=== PATIENT | male | born 1985 | race African-American/Black ===

== ENCOUNTER 2021-08-10 02:52 | Emergency (ER) | payer MEDICAID, SELFPAY ==
[2021-08-10 03:02] VITALS: BMI 24.9
--- NOTE | 2021-08-10 03:08 | PC.NURSE ---
PT refusing vitals at this time. PT continues to state that he doesn't need any help and he just wants to leave.
--- NOTE | 2021-08-10 03:11 | ED.PSYCH ---
HPI - Psych General Chief Complaint: Psychiatric Symptoms Stated Complaint: crisis Time Seen by Provider: 08/10/21 03:10 Source: patient Mode of arrival: EMS Limitations: no limitations History of Present Illness HPI Narrative: Patient found in the bathtub and his family was concerned about overdose. Patient does not want to hurt himself. Onset (ago): minute(s) Duration: constant Associated symptoms: denies other symptoms Related Data Allergies Allergy/AdvReac Type Severity Reaction Status Date / Time No Known Allergies Allergy Unverified 01/30/20 16:20 Review of Systems Constitutional: Constitutional: Reports no additional constitutional complaints Eyes: Eyes: Reports no additional eye complaints ENT: Denies dizziness Cardiovascular: Cardiovascular: Reports no additional cardiovascular complaints Respiratory: Respiratory: Reports as per HPI Gastrointestinal: Gastrointestinal: Reports no additional gastrointestinal complaints Musculoskeletal: Musculoskeletal: Reports no additional musculoskeletal complaints Integumentary/Breasts: Skin/Breast: Denies rash Neurologic: Reports system reviewed and no additional complaints, except as documented, Denies dizziness and Denies Sensory deficit (Neuro) Psychiatric: Psychiatric: Denies anxiety [facility] Social History Social History Advance Directives: No Advance Directives Information Provided: No Physical Exam Vital Signs: Vital Signs: BMI result Body Mass Index 24.9 Const: General: healthy appearing Nutritional Appearance: average body habitus Orientation/consciousness: oriented to person and patient oriented x3 Limitations: no limitations HEENT: Head: Yes normal to inspection Ears: external ears normal General nose exam: Normal external nose present Mouth: Normal oral and palatal mucosa present and oropharynx normal Throat: Yes posterior oropharynx normal Eyes: General: appearance normal, both eyes and all related structures Neck: Other: supple Neck: Yes normal visual inspection Chest: Chest palpation & inspection: normal inspection of the chest Resp: Auscultation: clear to auscultation bilaterally Cardio: Jugular venous distension: no JVD Rate: regular rate Rhythm: regular rhythm Heart sounds: S1 normal heart sound present and S2 normal heart sound present GI: Inspection: Yes normal to inspection Palpation (GI): Soft to palpation, nontender and No hepatosplenomegaly present Auscultation: normal bowel sounds : General: Yes no CVA tenderness Back/Spine/Pelvis: Back: no CVA tenderness Skin: General skin exam: no rashes or lesions noted Neuro: General: oriented to person and patient oriented x3 Cranial nerves: Yes CN's II-XII intact bilaterally Motor exam (neuro): 5/5 motor strength present throughout Sensory Exam: No Sensory deficit (Neuro) Extrem: General: Yes normal to inspection Psych: Appearance: grossly normal Course Reevaluation(s) Reevaluation #1: patient refusing conselors, refusing sude evaluation, states he is not suicidal or homicidal ideation Time: 03:16 Discharge Plan Discharge Clinical Impression: Depression, Polysubstance (including opioids) dependence with physiol dependence Patient Disposition: Home, Self-Care Instructions: Depression (ED) Referrals: PhysicianCorie J [Primary Care Provider] - 5 days Interventions: ED Discharge Assessment Last Done: 08/10/21 03:28 Discharge Date/Time: 08/10/21 03:32
--- NOTE | 2021-08-10 06:26 | MHC.CARE ---
Received consult request. Pt discharged prior to CARE Team arriving at 0600.
== END 2021-08-10 03:32 | disposition home or self-care (01) ==
PROVIDERS: Emergency Provider Emergency Medicine
DX: F33.1 Major depressive disorder, recurrent, moderate (principal); F11.20 Opioid dependence, uncomplicated; Z71.51 Drug abuse counseling and surveillance of drug abuser
CPT/HCPCS: 99283; 99284

== ENCOUNTER 2021-08-20 15:29 | Emergency (ER) | payer MEDICAID, SELFPAY ==
--- NOTE | 2021-08-20 15:46 | ED_ITS ---
HPI - Psych General Chief Complaint: Psychiatric Symptoms Stated Complaint: sec 12 from [facility], si no plan Time Seen by Provider: 08/20/21 15:43 Source: EMS Mode of arrival: EMS Limitations: no limitations History of Present Illness HPI Narrative: 36-year-old male with a history of PTSD, bipolar disorder, depression, ADHD coming from the community on a section 12 with suicidal thoughts. Per section the patient has reported suicidal thoughts no current plan, seems to be responding to internal stimuli, several OD's since May with ?intentional, not sleeping or eating. Has been off all his medication for >2 months. Related Data Home Medications Medication Instructions Recorded Confirmed aripiprazole 15 mg tablet 1 tab PO DAILY 08/20/21 08/20/21 Allergies Allergy/AdvReac Type Severity Reaction Status Date / Time No Known Allergies Allergy Unverified 01/30/20 16:20 Review of Systems Review of Systems: Yes all other systems are reviewed and are negative Constitutional: Constitutional: Reports no additional constitutional complaints, Denies body ache(s), Denies chills, Denies fever(s), Denies headache(s) and Denies weakness Eyes: Eyes: Reports no additional eye complaints and Denies change in vision ENT: Reports system reviewed and no additional complaints, except as documented, Denies dizziness, Denies headache(s), Denies nasal congestion, Denies nasal discharge and Denies neck pain Cardiovascular: Cardiovascular: Reports no additional cardiovascular complaints, Denies chest pain, Denies leg edema and Denies dyspnea Respiratory: Respiratory: Reports no additional respiratory complaints, Denies cough and Denies dyspnea Gastrointestinal: Gastrointestinal: Reports no additional gastrointestinal complaints, Denies abdominal pain, Denies diarrhea, Denies nausea and Denies vomiting Genitourinary: Genitourinary: Denies urinary incontinence Musculoskeletal: Musculoskeletal: Reports no additional musculoskeletal complaints, Denies back pain, Denies arthralgias, Denies joint swelling, Denies neck pain, Denies numbness and Denies tingling Integumentary/Breasts: Skin/Breast: Reports system reviewed and no additional complaints, except as docu and Denies rash Neurologic: Reports system reviewed and no additional complaints, except as documented, Denies Abnormal speech present, Denies dizziness, Denies headache(s), Denies numbness, Denies tingling and Denies weakness Psychiatric: Psychiatric: Reports depression and Reports suicidal ideation PMFSH Past Medical History Attestation statement: The following information was validated with the patient. Source: old records reviewed and nursing notes reviewed Social History Social History Advance Directives: No Advance Directives Information Provided: No Physical Exam Vital Signs: Vital Signs: Last Vital Signs Temp 98.1 F 08/20/21 15:51 Pulse 81 08/20/21 15:51 Resp 14 08/20/21 15:51 BP 142/82 H 08/20/21 15:51 Pulse Ox 98 08/20/21 15:51 BMI result Body Mass Index 25.9 Const: General: cooperative, healthy appearing, comfortable and no acute di stress Orientation/consciousness: patient oriented x3 Limitations: no limitations HEENT: Head: Yes normal to inspection Ears: hearing grossly normal bilaterally General nose exam: Normal external nose present Face and sinus : Yes normal facial exam Mouth: Normal oral and palatal mucosa present Throat: Yes posterior oropharynx normal Eyes: General: appearance normal, both eyes and all related structures Pupils: Equal, round and reactive pupils present Neck: Neck: Yes normal visual inspection Chest: Chest palpation & inspection: normal inspection of the chest Resp: Effort & Inspection: normal respiratory effort Auscultation: clear to auscultation bilaterally Cardio: Rate: regular rate Rhythm: regular rhythm Peripheral pulses: Peripheral pulses 2+ throughout GI: Inspection: Yes normal to inspection Palpation (GI): Soft to palpation and nontender Auscultation: normal bowel sounds Back/Spine/Pelvis: Thoracic/Lumbar Spine: thoracic and lumbar spine normal to inspection Skin: General skin exam: no rashes or lesions noted Neuro: General: patient oriented x3, no focal motor deficits and normal sensation to monofilament Cranial nerves: Yes CN's II-XII intact bilaterally and Yes Equal, round and reactive pupils present Cognition (Neuro): normal co gnition Speech: No Abnormal speech present Gait exam (Neuro): Normal gait present Motor exam (neuro): 5/5 motor strength present throughout Extrem: General: Yes normal to inspection Course Course Course Narrative: 36 yo male here on Section 12 from the community today with reports of suicidal thoughts. No concern for acute ingestion or trauma. Patient is bed sea from the community. 2000-labs were ordered, drug screen ordered, covid screen. Patient refusing labs at this point. MDM - Psych Medical Records Attestation: I reviewed the patient's medical records. Lab Data Attestation: I reviewed the patient's lab results. Result diagrams: 08/20/21 20:53 08/20/21 20:53 Labs: Lab Results 08/20/21 Range/Units 16:27 COVID-19 (NA) Negative (Negative) COVID-19 Clin Com See Note Discharge Plan Discharge Clinical Impression: Suicidal ideation Patient Disposition: Still a Patient Prescriptions: No Action aripiprazole 15 mg tablet 1 tab PO DAILY 0RF
[2021-08-20 15:51] VITALS: BP 142/82; PULSE 81; RESP 14; TEMP 36.7; O2SAT 98; BMI 25.9
--- NOTE | 2021-08-20 15:59 | PC.NURSE ---
Security called, pt changed into hospital attire. Pt's belongings placed into locker 12. 1:1 monitoring initited.
--- NOTE | 2021-08-20 15:59 | PC.NURSE ---
PATIENT REFUSED ALL LABS ,NAIN PEDERSEN AND MD CAMPBELL AWARE .
--- NOTE | 2021-08-20 16:40 | PC.NURSE ---
Patient talked with the provider and agreed to give urine and do a COVID swab. Patient is still refusing lab work.
[2021-08-20 16:47] LABS: COVID-19 Test Negative (Negative); IDNOW Serial# 16C4AD1C
--- NOTE | 2021-08-20 17:35 | PC.NURSE ---
patient attempting to etienne staff when given response to med inquiry. patient during interview had said he was on no current medications.
[2021-08-20 21:08] LABS: MANUAL DIFF FLAG NO
[2021-08-20 21:09] LABS: Basophils Absolute Auto 0.1 X10*3/uL (0.0-0.2); Basophils Percent Auto 0.8 % (0-2); Eosinophils Absolute Auto 0.2 X10*3/uL (0.0-0.4); Eosinophils Percent Auto 3.2 % (0-4); Hemoglobin 15.2 g/dl (14.0-18.0); Imm Gran Abs Auto 0.01 X10*3/uL (0.00-0.03); Imm Gran Pct Auto 0.2 % (0.0-0.4); Lymphocytes Absolute Auto 3.5 X10*3/uL (1.2-4.9); Lymphocytes Percent Auto 54.7 % (20-40); Mean Corpuscular HGB Conc 34.5 g/dl (31.0-36.0); Mean Corpuscular Hemoglobin 30.3 pg (27.0-33.0); Mean Corpuscular Volume 87.6 fL (80.0-98.0); Mean Platelet Volume 9.3 fL (9.4-12.4); Monocytes Absolute Auto 0.5 X10*3/uL (0.1-1.2); Monocytes Percent Auto 7.6 % (2-11); Neutrophils Absolute Auto 2.1 x10*3/uL (2.0-8.3); Neutrophils Percent Auto 33.5 % (45-73); Platelet Count 239 X10*3/uL (160-400); Red Blood Count 5.02 X10*6/uL (4.60-5.80); Red Cell Distribution Width 13.1 % (11.0-16.0); White Blood Count 6.3 X10*3/uL (4.8-10.8)
[2021-08-20 21:20] LABS: Amphetamine Screen Urine Not Detected (Not Detect); Barbiturates, Urine Not Detected (Not Detect); Benzodiazepines Screen Urine Not Detected (Not Detect); Cannabinoid Screen Urine POSITIVE (Not Detect); Cocaine Screen Urine POSITIVE (Not Detect); Fentanyl, urine POSITIVE (Not Detect); Opiate Screen Urine POSITIVE (Not Detect); Phencyclidine Screen Urine Not Detected (Not Detect)
[2021-08-20 21:25] LABS: Ethanol < 10 mg/dL
[2021-08-20 21:38] LABS: Alanine Aminotransferase 14 U/L (0-40); Albumin Level 4.3 g/dL (3.5-5.0); Alkaline Phosphatase 59 U/L (39-117); Anion Gap 12 (12-20); Aspartate Amino Transferase 18 U/L (5-37); Bilirubin Direct 0.4 mg/dL (0.0-0.5); Bilirubin Total 1.3 mg/dL (0.0-1.0); Blood Urea Nitrogen 15 mg/dL (9-16); Calcium 9.1 mg/dL (8.4-10.2); Carbon Dioxide 27 mmol/L (22-29); Chloride 102 mmol/L (96-108); Creatinine Clr Calc Pharmacy 78.2; Estimated Glomerular Filt Rate > 60; Glucose Random 126 mg/dL (60-115); Potassium 3.3 mmol/L (3.3-5.1); Sodium 138 mmol/L (135-145); Total Protein 7.1 g/dL (6.5-8.0)
[2021-08-20 22:56] LABS: Acetaminophen LAB < 1 mcg/mL (<30); Salicylate < 5.0 mg/dL (15-30)
[2021-08-21 06:27] VITALS: BP 103/73; PULSE 79; RESP 17; TEMP 36.5; O2SAT 96
--- NOTE | 2021-08-21 06:29 | PC.NURSE ---
Patient slept through the night, no distress observed/reported, behavior non concerning, med rec completed/pending provider's approval, disposition per [facility] is section 12 inpatient bed search, [facility], transfer order paper filled up, needs to be submitted to ED stenographer secretary to arrange ride after RN to RN is completed, receiving hospital wants RN to RN between [phone], with ETA 1000 am, VSS, will continue to monitor.
--- NOTE | 2021-08-21 07:22 | PC.NURSE ---
patient appears to remain asleep at present respirations are even and unlabored patient appears in no distress
--- NOTE | 2021-08-21 12:12 | PC.NURSE ---
client upon entering room appeared to lose balance perhaps? this did not look like an actual fall, but appeared to be a dramatic gesture in the opinion of this curriculum writer, i asked the opinion of the tech that was within four feet of my position and she agreed. vs obtained immediately and were within normal limits.
[2021-08-21 12:16] VITALS: BP 138/64; PULSE 79; RESP 18; TEMP 36.3; O2SAT 100
== END 2021-08-21 13:01 ==
PROVIDERS: Nurse Practitioner Family; Emergency Provider Emergency Medicine
DX: F33.1 Major depressive disorder, recurrent, moderate (principal); R45.851 Suicidal ideations; Z79.899 Other long term (current) drug therapy; Z20.822 Contact with and (suspected) exposure to COVID-19
CPT/HCPCS: 36415; 80048; 80076; 80143; 80179; 80307; 82077; 85025; 87635; 99285

== ENCOUNTER 2021-09-26 07:43 | Emergency (ER) | payer MEDICAID, SELFPAY ==
[2021-09-26 08:23] VITALS: BP 129/87; PULSE 88; RESP 14; TEMP 36.4; O2SAT 96
[2021-09-26 08:27] VITALS: BP 120/78; BP 143/84; PULSE 102; PULSE 94; RESP 14; O2SAT 92; O2SAT 97; BMI 24.2
--- NOTE | 2021-09-26 08:30 | ED.GENADULT ---
HPI - General Adult General Chief complaint: Overdose Stated complaint: drug use at [facility] Time Seen by Provider: 09/26/21 08:09 Source: patient Mode of arrival: ambulatory Limitations: no limitations History of Present Illness HPI narrative: 36 year male presents to the ED for drug use. Patient was doing drugs in [facility] and brought to the ED for evaluation. Patient was not unconscious and did not overdose. Patient was found using drugs. Patient's history of psych history but presently denies any suicidal homicidal ideation. Patient states when he dennis up he will have to go to work. Patient does not want detox Related Data Home Medications Medication Instructions Recorded Confirmed aripiprazole 15 mg tablet 1 tab PO DAILY 08/20/21 08/20/21 Allergies Allergy/AdvReac Type Severity Reaction Status Date / Time No Known Allergies Allergy Unverified 01/30/20 16:20 Review of Systems Review of Systems: Substance use Yes all other systems are reviewed and are negative PMFSH Social History Social History Advance Directives: No Advance Directives Information Provided: No Physical Exam ED Vital Signs: Vital Signs - 24 hr 09/26/21 08:23 09/26/21 08:27 09/26/21 11:26 Temperature 97.6 F Pulse Rate 88 102 H 84 Respiratory Rate 14 14 14 Blood Pressure 129/87 143/84 H 138/86 Pulse Oximetry 96 92 98 BMI result Body Mass Index 24.2 Const General: cooperative, healthy appearing, comfortable, no acute distress, well developed, alert, awake and Physically active Orientation/consciousness: patient oriented x3 HENMT Head: Yes normal to inspection, Yes No palpable skull fracture present, Yes normocephalic, Yes atraumatic and No abrasion Ears: hearing grossly normal bilaterally, external ears normal, TM's normal bilaterally, EAC's normal, mastoids normal and no periauricular adenopathy Eyes General: appearance normal, both eyes and all related structures Neck Neck: Yes normal visual inspection, Yes full ROM, Yes no lymphadenopathy, Yes no meningeal signs, Yes trachea midline, Yes supple, No anterior neck swelling and No tender Chest Chest palpation & inspection: normal inspection of the chest and normal palpation of entire chest wall Resp Effort & Inspection: normal respiratory effort and able to speak in complete sentences Auscultation: clear to auscultation bilaterally Cardio Jugular venous distension: no JVD Heart sounds: S1 normal heart sound present and S2 normal heart sound present GI Inspection: Yes normal to inspection and No abdominal wall ecchymosis Palpation (GI): Soft to palpation, not firm, nontender, no guarding and not rigid General: No CVA tenderness and Yes no CVA tenderness Back/Spine/Pelvis Back: no CVA tenderness, No CVA tenderness and No back tenderness Skin General skin exam: no rashes or lesions noted and elasticity normal Neuro General: patient oriented x3, gait normal, tone normal, no meningeal signs, no focal motor deficits and CN's II-XI intact bilaterally Cranial nerves: Yes CN's II-XII intact bilaterally Extrem General: Yes normal to inspection and Yes full ROM Psych Appearance: grossly normal, well kempt and not disheveled Course Course Course Narrative: After getting history of patient and evaluated patient. Patient would like to go sleep. He will be allowed to sleep and sober will be re-evaluated and reorder for detox Reevaluation(s) Reevaluation #1: During ED evaluation while sleeping patient O2 saturation dropped to 88%. Patient placed on 2 L and O2 saturation 100%.. Nasal Narcan ordered on standby in case needed. Prior U tox reviewed and shows PC have history of opiate use specially fentanyl, heroin and also cocaine. Although patient denied overdose as per patient care team consult place for LILIAM evaluation Time: 10:19 Reevaluation #2: Patient evaluated by care team asset recovery specialist Miguel who states patient informed him he did not want any detox bed and did not want any referrals to any outpatient programs. Patient observed in the ED for close to 3 hours. Patient presents alert oriented x3 ready for discharge. O2 saturation room air 98% on discharge Time: 11:28 Medical Decision Making MDM Narrative Medical decision making narrative: Overdose Discharge Plan Discharge Clinical Impression: Polysubstance (including opioids) dependence with physiol dependence Patient Disposition: Home, Self-Care Instructions: Polysubstance Abuse (ED) Additional Instructions: Please follow-up with your primary care provider. Return to the ED for any suicidal/homicidal ideation, auditory/visual hallucinations, any physical complaints, or any other concerning symptoms. Prescriptions: No Action aripiprazole 15 mg tablet 1 tab PO DAILY 0RF Stand Alone Forms: Work/School Release Interventions: ED Discharge Assessment Last Done: 09/26/21 11:36 Discharge Date/Time: 09/26/21 11:37 Print Language: Moldovan
--- NOTE | 2021-09-26 11:12 | MHC.RECOVSUP ---
Recovery Support note: Patient is a 36 year old [place]an speaking male who presented to [facility] ED due to appearing under the influence while at work. This parts data writer met with patient to discuss substance use and treatment options. Patient reports he has been sleeping at a custodial and walking two hours to work and that he needs to get to work so he can get a pay check and get out of the custodial. Patient states this is holding me up. Patient report she has used drugs in the past however is adamant that he did not use today and that he is just very tired. Patient is not interested in recovery resources at this time. Discussed case with ED provider.
[2021-09-26 11:26] VITALS: BP 138/86; PULSE 84; RESP 14; O2SAT 98
== END 2021-09-26 11:37 | disposition home or self-care (01) ==
PROVIDERS: Emergency Provider Emergency Medicine
DX: F11.20 Opioid dependence, uncomplicated (principal); F14.20 Cocaine dependence, uncomplicated
CPT/HCPCS: 99283; 99284

== ENCOUNTER 2023-04-18 01:43 | Emergency (ER) | payer MEDICAID, SELFPAY ==
--- NOTE | ~2023-04-18 | CT_ITS ---
EXAMINATION: CT HEAD WITHOUT CONTRAST CT CERVICAL SPINE WITHOUT CONTRAST CLINICAL INFORMATION: Trauma. Pain. COMPARISON: None available. TECHNIQUE: Contiguous axial imaging was performed through the head and cervical spine without intravenous administration of contrast. Sagittal and coronal reformatted images also obtained. This CT examination was performed using dose optimization techniques as appropriate, variously including the following: *Automated exposure control *Adjustment of mA and/or kV according to patient size (this includes techniques or standardized protocols for targeted exams where dose is matched to indication/reason for exam; i.e. extremities or head) *Use of iterative reconstruction technique DLP: 1050 mGy-cm FINDINGS: The lateral, third and fourth ventricles are normally outlined. The cortical sulci and basal cisterns are normally outlined as well. There is no acute territorial defect, hemorrhage or midline shift. The extra-axial spaces are unremarkable. Calvarium: Intact. Maxillofacial sinuses and mastoids: There is a right maxillary sinus opacity which appears to be chronic. The remaining visualized maxillofacial sinuses and mastoids are clear. Cervical spine: The alignment is within normal limits. The disc spaces are maintained. The bone mineralization is normal. There is no fracture. The spinal canal and neuroforamen are patent. The soft tissues are unremarkable. The visualized upper lung english are clear. CT/CT head/brain wo IV con IMPRESSION: No acute intracranial abnormality. No cervical spine fracture or malalignment.
--- NOTE | ~2023-04-18 | CT_ITS ---
EXAMINATION: CT HEAD WITHOUT CONTRAST CT CERVICAL SPINE WITHOUT CONTRAST CLINICAL INFORMATION: Trauma. Pain. COMPARISON: None available. TECHNIQUE: Contiguous axial imaging was performed through the head and cervical spine without intravenous administration of contrast. Sagittal and coronal reformatted images also obtained. This CT examination was performed using dose optimization techniques as appropriate, variously including the following: *Automated exposure control *Adjustment of mA and/or kV according to patient size (this includes techniques or standardized protocols for targeted exams where dose is matched to indication/reason for exam; i.e. extremities or head) *Use of iterative reconstruction technique DLP: 1050 mGy-cm FINDINGS: The lateral, third and fourth ventricles are normally outlined. The cortical sulci and basal cisterns are normally outlined as well. There is no acute territorial defect, hemorrhage or midline shift. The extra-axial spaces are unremarkable. Calvarium: Intact. Maxillofacial sinuses and mastoids: There is a right maxillary sinus opacity which appears to be chronic. The remaining visualized maxillofacial sinuses and mastoids are clear. Cervical spine: The alignment is within normal limits. The disc spaces are maintained. The bone mineralization is normal. There is no fracture. The spinal canal and neuroforamen are patent. The soft tissues are unremarkable. The visualized upper lung english are clear. CT/CT cervical spine wo IV con IMPRESSION: No acute intracranial abnormality. No cervical spine fracture or malalignment.
--- NOTE | ~2023-04-18 | XR_ITS ---
EXAMINATION: XR SHOULDER, LEFT CLINICAL INFORMATION: Injury. Pain. COMPARISON: None available. TECHNIQUE: AP external rotation, Grashey, scapular Y, and axillary views of the left shoulder. FINDINGS: The bones and soft tissues are normal. No fracture. Glenohumeral and acromioclavicular alignment is anatomic with normal joint space. No abnormal soft tissue calcifications. XR/XR shoulder LT min 2V IMPRESSION: No significant abnormality identified.
[2023-04-18 01:52] VITALS: BP 152/98; PULSE 93; RESP 20; TEMP 36.7; O2SAT 99; BMI 24.4
[2023-04-18 04:00] VITALS: BP 126/85; PULSE 82; RESP 16; TEMP 36.9; O2SAT 95
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
[2023-04-18] MEDS: Acetaminophen 325 MG TABLET 975 MG PO (05:36)
[2023-04-18] MEDS: Cyclobenzaprine HCl 10 MG TABLET PO (05:36)
[2023-04-18 05:41] VITALS: BP 131/94; PULSE 87; RESP 16; TEMP 36.7; O2SAT 95
== END 2023-04-18 06:35 | disposition home or self-care (01) ==
PROVIDERS: Emergency Provider Emergency Medicine
DX: S09.90XA Unspecified injury of head, initial encounter (principal); S43.402A Unspecified sprain of left shoulder joint, initial encounter; M25.512 Pain in left shoulder; R51.9 Headache, unspecified; M54.2 Cervicalgia; Y04.2XXA Assault by strike against or bumped into by another person, initial encounter; Y93.9 Activity, unspecified; Y92.9 Unspecified place or not applicable; Y99.9 Unspecified external cause status; Z79.899 Other long term (current) drug therapy
CPT/HCPCS: 70450; 72125; 73030; 99284

== ENCOUNTER 2023-05-11 23:44 | Emergency (ER) | payer MEDICAID, SELFPAY ==
[2023-05-11 23:48] VITALS: BP 124/80; PULSE 91; RESP 18; TEMP 36.8; O2SAT 98; BMI 26.2
--- NOTE | 2023-05-11 23:56 | ED.GENADULT ---
HPI - General Adult General Chief complaint: Skin/Abscess/Foreign Body Stated complaint: rash on penis ? Time Seen by Provider: 05/11/23 23:56 Source: patient Mode of arrival: ambulatory Limitations: no limitations History of Present Illness HPI narrative: Patient is a 38 year old assigned male at with no reported medical history presenting to the emergency department today with pain lesions on his penis. Patient states that last week, he had bronchitis, then went to a hotel and swam in a public pool, and now has penile lesions that are painful to the touch. Patient denies any penile discharge, dizziness, lightheadedness, abdominal pain, nausea, vomiting, fever, chills, blurry vision, double vision, loss of vision, chest pain, difficulty breathing, shortness of breath, back pain, night sweats, pain with urination, increased urinary frequency, increased urinary urgency, blood in his urine or stool, syncope or a near syncopal episode, recent trauma or falls, bowel incontinence, bladder incontinence, bowel retention, bladder retention, or any other complaints at this time. Onset (ago): day(s) Severity: mild Severity scale (1-10): 3 Quality: burning Relieving factors: none Exacerbating factors: none Associated symptoms: rash Treatments prior to arrival: none Related Data Home Medications Medication Instructions Recorded Confirmed aripiprazole 15 mg tablet 1 tab PO DAILY 08/20/21 08/20/21 Previous Rx's Medication Instructions Recorded cyclobenzaprine 10 mg tablet 10 mg PO TID PRN muscle spasm #20 04/18/23 tabs lidocaine 4 % topical patch 1 patch topical DAILY PRN pain #10 04/18/23 ea doxycycline hyclate 100 mg tablet 100 mg PO BID 7 days #14 tabs 05/12/23 valacyclovir 1 gram tablet 1,000 mg PO BID 7 days #14 tabs 05/12/23 Allergies Allergy/AdvReac Type Severity Reaction Status Date / Time acetaminophen Allergy Nausea Verified 05/11/23 23:53 Review of Systems Constitutional: Constitutional: Reports no additional constitutional complaints, Denies chills, Denies fever(s) and Denies night sweats Eyes: Eyes: Reports no additional eye complaints, Denies blurry vision, Denies change in vision, Denies diplopia, Denies eye discharge, Denies loss of vision and Denies eye pain ENT: Denies dizziness Cardiovascular: Cardiovascular: Reports no additional cardiovascular complaints, Denies chest pain, Denies lightheadedness, Denies Loss of Consciousness and Denies dyspnea Respiratory: Respiratory: Reports no additional respiratory complaints and Denies dyspnea Gastrointestinal: Gastrointestinal: Reports no additional gastrointestinal complaints, Denies abdominal pain, Denies melena, Denies hematochezia, Denies change in bowel habits and Denies change in stool character Genitourinary: Genitourinary: Reports no additional male genitourinary complaints, Denies hematuria, Denies oliguria, Denies difficulty urinating, Denies dysuria, Denies urinary frequency, Denies urinary hesitancy, Denies urinary incontinence and Denies urinary urgency Comments: penile lesions Musculoskeletal: Musculoskeletal: Reports no additional musculoskeletal complaints, Denies numbness and Denies tingling Neurologic: Denies dizziness, Denies loss of vision, Denies numbness and Denies tingling Psychiatric: Psychiatric: Reports no additional psychiatric complaints Endocrine: Endocrine: Reports no additional endocrine complaints Hematologic/Lymphatic: Hematologic/Lymphatic: Reports no additional hematologic/lymphatic complaints Allergic/Immunologic: Allergic/Immunologic: Reports no additional allergic/immunologic complaints PMFSH Past Medical History Attestation statement: The following information was validated with the patient. Source: old records reviewed and nursing notes reviewed Medical History Polysubstance (including opioids) dependence with physiol dependence Social History Social History Alcohol intake: current Smoked in Last 30 Days: Yes Use of substances other than those prescribed or required for medical reasons: Yes Substance Use Type: Marijuana Advance Directives: No Advance Directives Information Provided: Yes Physical Exam ED Vital Signs: Vital Signs - 24 hr 05/11/23 23:48 05/12/23 00:45 Temperature 98.2 F 98.4 F Pulse Rate 91 77 Respiratory Rate 18 18 Blood Pressure 124/80 118/76 Pulse Oximetry 98 98 Oxygen Delivery Method Room Air Room Air BMI result Body Mass Index 26.2 Const General: cooperative, no acute distress, alert and awake Nutritional Appearance: well nourished Orientation/consciousness: patient oriented x3 Limitations: no limitations HENMT Head: Yes normal to inspection and Yes atraumatic Ears: hearing grossly normal bilaterally and external ears normal General nose exam: Normal external nose present, no nasal discharge noted and no epistaxis Face and sinus: Yes normal facial exam, No abrasion and No laceration Mouth: Normal oral and palatal mucosa present, no drooling and no muffled voice Eyes General: appearance normal, both eyes and all related structures Periorbital: periorbital findings normal Eyelids: Yes eyelids normal Conjunctivae: conjunctivae normal Pupils: Equal, round and reactive pupils present EOM: EOMs intact bilaterally Neck Neck: Yes normal visual inspection, Yes full ROM and Yes no lymphadenopathy Chest Chest palpation & inspection: normal inspection of the chest Resp Effort & Inspection: normal respiratory effort and able to speak in complete sentences GI Inspection: Yes normal to inspection Male General Exam: Yes Genital lesions present (consistent with herpes simplex) Penis: uncircumcised and Genital lesions present (consistent with herpes simplex) Neuro General: patient oriented x3 and moves all extremities Cranial nerves: Yes Equal, round and reactive pupils present Cognition (Neuro): normal cognition Motor exam (neuro): 5/5 motor strength present throughout Sensory Exam: Normal double simultaneous stimulation for sensation Coordination: [id number] test normal Extrem General: Yes normal to inspection, Yes full ROM and Yes capillary refill normal Psych Appearance: grossly normal Mental Status: mental status grossly normal Affect: normal affect Attitude: cooperative Thought process: Normal thought process present Thought content: Normal thought content present Insight: Good insight present (Psych) Medications Administered Discontinued Medications Generic Name Dose Route Start Last Admin Trade Name Quocq PRN Reason Stop Dose Admin Ceftriaxone Sodium 500 mg/ 0 mg 05/12/23 00:15 05/12/23 00:43 Lidocaine HCl 1 ml IM 05/12/23 00:16 Not Given ONCE ONE Doxycycline Monohydrate 100 mg 05/12/23 00:15 05/12/23 00:42 Doxycycline Monohydrate 100 Mg Capsule PO 05/12/23 00:16 100 mg ONCE ONE Administration Ondansetron HCl 4 mg 05/12/23 00:26 05/12/23 00:43 Ondansetron Odt 4 Mg Tab.Rapdis TRANSLINGU 05/12/23 00:27 4 mg ONCE ONE Administration Valacyclovir HCl 1,000 mg 05/12/23 00:15 05/12/23 00:42 Valacyclovir Hcl 1,000 Mg Tablet PO 05/12/23 00:16 1,000 mg ONCE ONE Administration Medical Decision Making Medical Decision Making MDM Narrative: Patient is a 38 year old assigned male at with no reported medical history presenting to the emergency department today with painful penile lesions. Patient's physical exam showed herpetic type lesions to the tip of the penis. Patient's syphillis, gonorrhea, and chlamydia testing is pending at this time. I explained my physical exam findings to the patient. I answered all questions asked by the patient. Patient refused IM Ceftriaxone while in the department, stating he is afraid of needles. I stressed the importance of the patient taking his medication as prescribed. I stressed the importance of the patient following up with his primary care provider. I stressed the importance of the patient returning to the emergency department immediately if his symptoms were to worsen or if he were to develop any dizziness, shortness of breath, difficulty breathing, chest pain, blurry vision, loss of vision, nausea, vomiting, abdominal pain, fever, chills, back pain, or any other complaints. Patient verbalized agreement and understanding with this treatment plan and discharge. Differential Diagnosis Differential Diagnoses: The differential diagnosis associated with the presentation includes Herpes simplex virus Gonorrhea Chlamydia STD Syphillis Admission/Observation Consideration of admission/observation: Escalation of care including admission/observation considered Patient would have been admitted to the hospital had his work up had any findings where hospital admission was appropriate and his clinical presentation warranted hospital admission. Prescription Management I considered prescription management with: Antiviral (patient prescribed an antiviral for herpes) and Antibiotic (patient prescribed an antibiotic to cover for STD) Discharge Plan Discharge Clinical Impression: Herpes, Possible exposure to STI Patient Disposition: Home, Self-Care Instructions: Genital Herpes Simplex (ED), Sexually Transmitted Diseases (ED) Additional Instructions: We will call you if any of the tests we performed are positive. Follow up with your primary care provider. Return to the emergency department immediately if your symptoms worsen or if you develop any dizziness, shortness of breath, difficulty breathing, chest pain, blurry vision, loss of vision, nausea, vomiting, abdominal pain, fever, chills, back pain, or any other complaints. Prescriptions: New valacyclovir 1 gram tablet 1,000 mg PO BID 7 Days Qty: 14 0RF doxycycline hyclate 100 mg tablet 100 mg PO BID 7 Days Qty: 14 0RF No Action aripiprazole 15 mg tablet 1 tab PO DAILY cyclobenzaprine 10 mg tablet 10 mg PO TID PRN (Reason: muscle spasm) Qty: 20 0RF lidocaine 4 % adhesive patch,medicated 1 patch topical DAILY PRN (Reason: pain) Qty: 10 0RF Rx Instructions: may leave on for up to 12 hrs Referrals: [facility] Family Medicine [Provider Group] (Call to establish and follow up with a primary care provider. If you already have a primary care provider, please follow up with them.) [facility] Primary Care, [place] [Provider Group] (Call to establish and follow up with a primary care provider. If you already have a primary care provider, please follow up with them.) [facility] Primary Care,[place] [Provider Group] (Call to establish and follow up with a primary care provider. If you already have a primary care provider, please follow up with them.) Stand Alone Forms: Work/School Release Interventions: ED Discharge Assessment Last Done: 05/12/23 01:26 Print Language: Belarusian
[2023-05-12] MEDS: Doxycycline Monohydrate 100 MG CAPSULE PO (00:42)
[2023-05-12] MEDS: valACYclovir HCL 1,000 MG TABLET 1000 MG PO (00:42)
[2023-05-12] MEDS: Ondansetron ODT 4 MG TAB.RAPDIS TRANSLINGU (00:43)
[2023-05-12 00:45] VITALS: BP 118/76; PULSE 77; RESP 18; TEMP 36.9; O2SAT 98
--- NOTE | 2023-05-12 00:48 | MHC.EDTECH ---
Attempted to get a urine and a CT-NG sample patient was unable to use the bathroom at this time will re-attempt.Hourly rounds and vitals completed and labs were obtained and sent to lab. Call neumann within reach
--- NOTE | 2023-05-12 01:08 | PC.NURSE ---
pt unable to provide urine at this time, provider aware. pt educated on need for urine. pt refused IM medication, provider aware.
--- NOTE | 2023-05-12 01:26 | MHC.EDTECH ---
Urines were obtained and sent to lab.
[2023-05-12 01:28] LABS: Appearance Urine Cloudy; Color Urine Yellow; Glucose Urine UA Negative (Negative); Leukocyte Esterase Urine Negative (Negative); Nitrite Urine Negative (Negative); Urine Blood Negative (Negative); Urine Ketones Negative (Negative); Urine Protein Negative (Neg-Trace)
[2023-05-12 02:56] LABS: CT PCR NOT DETECTED (Not Detect.); NG PCR NOT DETECTED (Not Detect.)
[2023-05-12 08:23] LABS: Syphilis Screen Nonreactive (Nonreactive)
== END 2023-05-12 01:34 | disposition home or self-care (01) ==
PROVIDERS: Physician Assistant Medical; Emergency Provider Internal Medicine
DX: B00.89 Other herpesviral infection (principal); N48.21 Abscess of corpus cavernosum and penis; Z20.2 Contact with and (suspected) exposure to infections with a predominantly sexual mode of transmission; Z72.89 Other problems related to lifestyle
CPT/HCPCS: 0353U; 36415; 81003; 86780; 99283; 99284

== ENCOUNTER 2023-06-23 16:40 | Emergency (ER) | payer MEDICAID, SELFPAY ==
--- NOTE | 2023-06-23 16:54 | ED_ITS ---
HPI - General Adult General Stated complaint: ETOH, UNCOOPERATIVE Time Seen by Provider: 06/23/23 16:52 Source: patient and EMS Mode of arrival: EMS Limitations: altered mental status History of Present Illness HPI narrative: Emergency room via ambulance and police. Patient was found unresponsive in the street. Patient did not get Narcan, patient woke up immediately. Patient arrived, he is alert, oriented x3, normal steady gait. Patient refused vitals, refused any care. On arrival, patient very belligerent, refusing to mold insert changer. Patient's seems to have some kind of bulge/bag under his pants, refusing to get changed over Related Data Home Medications Medication Instructions Recorded Confirmed aripiprazole 15 mg tablet 1 tab PO DAILY 08/20/21 08/20/21 Previous Rx's Medication Instructions Recorded cyclobenzaprine 10 mg tablet 10 mg PO TID PRN muscle spasm #20 04/18/23 tabs lidocaine 4 % topical patch 1 patch topical DAILY PRN pain #10 04/18/23 ea doxycycline hyclate 100 mg tablet 100 mg PO BID 7 days #14 tabs 05/12/23 valacyclovir 1 gram tablet 1,000 mg PO BID 7 days #14 tabs 05/12/23 Allergies Allergy/AdvReac Type Severity Reaction Status Date / Time acetaminophen Allergy Nausea Verified 05/12/23 07:05 Review of Systems Review of Systems: Constitutional : No Weight loss, No Fever, No Chills, No Night Sweats, No Fatigue, No Malaise ENT/Mouth : No Hearing loss, No Ear Pain, No Nasal Congestion, No Sinus Pain, No Hoarseness, No sore throat, No Rhinorrhea, No Swallowing Difficulty Eyes: No Eye Pain, No Swelling, No Redness, No Foreign Body, No Discharge, No Vision Changes Cardiovascular : No Chest Pain, No SOB, No Dyspnea on Exertion, No Orthopnea, No Edema, No Palpitations Respiratory : No Cough, No Sputum, No Wheezing, No Smoke Exposure, No Dyspnea Gastrointestinal : No Nausea, No Vomiting, No Diarrhea, No Constipation, No abdominal Pain, No Hematochezia, No Melena Genitourinary : no irregular bleeding, No Dysuria, No Urinary Frequency, No Hematuria, No Urinary Incontinence, No Urgency, No Flank Pain, No Urinary Flow Changes, No Hesitancy Musculoskeletal : No joint pain, No Myalgias, No Joint Swelling Skin : No Skin Lesions, No rash Neuro : No Weakness, No Numbness, No Paresthesias, No Loss of Consciousness, No Dizziness, No Headache Psych : No Anxiety/Panic, No Depression, No SI/HI/AH/VH, patient denies alcohol abuse, denies using drugs Heme/Lymph: No Bruising, No Bleeding,No Lymphadenopathy Endocrine : No Polyuria, No Polydipsia, No Temperature Intolerance PMFSH Past Medical History Medical History Polysubstance (including opioids) dependence with physiol dependence Social History Social History (System 05/12/23 @ 07:05 by Amber Cruz) Alcohol intake: current Substance Use Type: Marijuana Advance Directives: No Advance Directives Information Provided: No Medical Decision Making Medical Decision Making MDM Narrative: -patient on arrival belligerent, alert and oriented x3, very belligerent with staff. Threatened to punch security . Seems that patient is heading a bag with something in it under his pants and refusing any want to touch it or see it. -patient known to use drugs including opiates, fentanyl cocaine and marijuana -patient refused any vitals. Patient is alert and oriented x3, no acute distress, steady gait, patient denied SI or HI -patient's girlfriend is in the waiting room, sober -patient declined any care, patient being discharged Differential Diagnosis Differential Diagnoses: The differential diagnosis associated with the presentation includes (Anxiety, alcohol abuse, drug abuse) Discharge Plan Discharge Clinical Impression: Polysubstance abuse Patient Disposition: Home, Self-Care Instructions: Polysubstance Abuse (ED) Additional Instructions: Please follow-up with your primary care physician tomorrow. If you have any worsening or new symptoms, please return to the emergency room or call 911 Prescriptions: No Action aripiprazole 15 mg tablet 1 tab PO DAILY cyclobenzaprine 10 mg tablet 10 mg PO TID PRN (Reason: muscle spasm) Qty: 20 0RF lidocaine 4 % adhesive patch,medicated 1 patch topical DAILY PRN (Reason: pain) Qty: 10 0RF Rx Instructions: may leave on for up to 12 hrs valacyclovir 1 gram tablet 1,000 mg PO BID 7 Days Qty: 14 0RF doxycycline hyclate 100 mg tablet 100 mg PO BID 7 Days Qty: 14 0RF
--- OUTSIDE RECORDS SUMMARY | 2023-06-23 16:56 | XMS_ITS | Continuity of Care Document ---
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 Refills 1, Maintenance, 05/22/21 17:20:00 EST, Do Not Route Start Date: 05/22/21 Status: Ordered Basic metabolic panel Basic metabolic panel, See Instructions, # 1 each, Refills 0, Tot. Refills 0, Maintenance, Basic Metabolic Panel To be drawn 05/31/21 Dgx: N17.9 Please forward results to pt PCP or Dr. Arvizu Contractor if no PCP yet on file., 05/23/21 13:32:00... Start Date: 05/23/21 Status: Ordered Problem List Condition Effective Dates Status Health Status Inform ant Positive PPD(Confirmed) 1 04/16/10 Active 110mm. PPD 0mm on 03/06/09. Pt started 600mg Rifampin therapy on 05/26/10 and stopped on 09/22/10. Pt [facility].
--- OUTSIDE RECORDS SUMMARY | 2023-06-23 16:56 | XMS_ITS | Continuity of Care Document ---
Author Name Unknown Organization [facility] ter Address [address] [place] [address]- Care Team Providers Care Flight Coordinator Name Role Phone Not on Staff, PCP Primary Care Physician Unavail able Encounter [facility] [place] Date(s): 10/31/21 - 10/31/[address] [address]- Encounter Diagnosis Scabies(Final) - 10/31/21 Discharge Disposition: A-D/C Home Attending Physician: Radha Wagoner DO Admitting Physician: Radha Wagoner DO Referring Physician: Not on Staff, Referring MD Allergies, Adverse Reactions, Alerts Substance Reaction Severity Status acetaminophen Active Medications Abilify 10 mg oral tablet 10 mg, 1, tablet, By Mouth, Daily, # 30 tablet, Refills 0, Tot. Refills 0, Maintenance, 08/24/21 9:18:00 EDT, Print Requisition, Partial fill upon patient request if the prescription is for a schedule II opioid drug. Start Date: 08/24/21 Stop Date: 09/23/21 Status: Ordered ivermectin 3 mg oral tablet = 12 mg, By Mouth, Once, Take this medication on November 14, 2021., # 4 tablet, 0 Refills, Soft Stop, 10/31/21 14:44:00 EDT, [facility] #[id number], Partial fill upon patient request if the prescription is for a schedule II opioid drug., 167.6, cm, 0... Start Date: 10/31/21 Status: Ordered traZODone 50 mg oral tablet 50 mg, 1, tablet, By Mouth, Daily at bedtime, PRN, # 21 tablet, Refills 1, Tot. Refills 1, Maintenance, Sleep, 08/24/21 10:15:00 EDT, Route to Pharmacy Electronically, [id number], Partial fill upon patient request if the prescription... Start Date: 08/24/21 Stop Date: 10/05/21 Status: Ordered Problem List Condition Effective Dates Status Health Status Inform ant Positive PPD(Confirmed) 1 04/16/10 Active 110mm. PPD 0mm on 03/06/09. Pt started 600mg Rifampin therapy on 05/26/10 and stopped on 09/22/10. [facility] Vital Signs Most recent to oldest [Reference Range]: 1 2 Oxygen Saturation [94-100 %] 100 % (10/31/21 11:31 AM) 99 % (10/31/21 11:21 AM) Pulse Rate [55-90 bpm] 103 bpm *H* (10/31/21 11:31 AM) 88 bpm (10/31/21 11:21 AM) Blood Pressure [90-138/55-84 mm Hg] 134/ 84mm Hg (10/31/21 11:31 AM) Respiratory Rate [16-30 br/min] 18 br/mi n (10/31/21 11:31 AM) Temperature [96.8-100.4 DegF] 97.5 DegF (10/31/21 11:31 AM) Mode of Delivery (Oxygen) Room air (10/31/21 11:31 AM) Room air (10/31/21 11:21 AM) Blood pressure sites Arm, right (10/31/21 11:31 AM) Temperature Route Oral (10/31/21 11:31 AM) Social History Social History Type Response Smoking Status 5-9 cigarettes (betw een 1/4 to 1/2 pack)/day in last 30 days; Interested in cessation: No; Patient wants NRT during admission No entered on: 08/21/21 Sex
--- OUTSIDE RECORDS SUMMARY | 2023-06-23 16:56 | XMS_ITS | Continuity of Care Document ---
Author Name Unknown Organization [facility] ter Address [address] [place] [address]- Care Team Providers Care Dynamic Balancer Name Role Phone Not on Staff, PCP Primary Care Physician Unavail able Encounter [facility] [place] Date(s): 02/21/22 - 02/21/[address] [address]- Encounter Diagnosis Fall from bed(Final) - 02/21/22 Discharge Disposition: A-D/C Home Attending Physician: Vladimir Street MD Admitting Physician: Vladimir Street MD Referring Physician: Not on Staff, Referring MD Allergies, Adverse Reactions, Alerts No Known Allergies Medications ARIPiprazole 10 mg oral tablet 10 mg, 1, tablet, By Mouth, Daily, # 90 tablet, Refills 0, Maintenance, 03/12/21 2:38:00 EDT, Partial fill upon patient request if the prescription is for a schedule II opioid drug. Start Date: 03/12/21 Status: Ordered Tylenol 8 Hour 650 mg oral tablet, extended release 2 tablet = 1,300 mg, By Mouth, Every 8 hours, PRN as needed for pain, # 50 tablet, 0 Refills, Acute02/28/22 16:00:00 EDT, 02/21/22 14:02:00 EDT, ER Tablet, [facility], Partial fill upon patient request if the prescription is for a sched... Start Date: 02/21/22 Stop Date: 02/28/22 Status: Ordered Results Radiology Reports * Exam Date Time Procedure Performing Provider Status 02/21/22 1:22 PM Chest 2 Views Frontal and Lat Chary Lehman; Auth (Verified) Notes: (Chest 2 Views Frontal and Lat) Reason For Exam: Shortness of Breath RESULT: Chest 2 Views Frontal and Lat PROCEDURE: Chest 2 Views Frontal and Lat INDICATION: 36 years old Male with Hx of Present Illness: Pt states, I am a lot of pain in my back and I feel short of breath, I am cold and hot. My whole body hurts. The pain in my back is all over. The pain started 3 hrs ago, I fell out of bed I think.' Pt denies loc no thinners; Reason: Shortness of Breath; COMPARISON: Chest radiographs 2013 and March 11, 2021. FINDINGS: AP and lateral sitting upright views of the chest obtained. Portions of the wheelchair project over the upper abdomen and posterior inferior soft tissues of the back on the lateral view. Lines and tubes:None. Lungs and pleura: Lungs are clear. No pleural effusions.No evidence of pneumothorax. Heart, mediastinum and estelle: The cardiomediastinal silhouette and pulmonary vasculature are unremarkable. No cardiomegaly or pulmonary venous hypertension. Bones and soft tissues: No other demonstrable abnormality. IMPRESSION: 1. No evidence of acute cardiopulmonary disease. Thank you for allowing me to participate in the care of this patient. WSN: [id number] Ordering Physician: Arlene Vicente Dictated By: Yehuda Nix MD Dictated Date/Time: 02/21/22 1:26 pm Reviewed By: Yehuda Nix MD Signed By: Yehuda Nix MD Signed Date/Time: 02/21/22 1:26 pm Transcribed By: SIMÓN Transcribed Date/Time: 02/21/22 1:25 pm Vital Signs Most recent to oldest [Reference Range]: 1 2 3 Oxygen Saturation [94-100 %] 100 % (02/21/22 4:05 PM) 100 % (02/21/22 10:58 AM) 100 % (02/21/22 9:11 AM) Pulse Rate [55-90 bpm] 101 bpm *H* (02/21/22 4:05 PM) 86 bpm (02/21/22 10:58 AM) 78 bpm (02/21/22 9:11 AM) Blood Pressure [90-138/55-84 mm Hg] 107/61mm Hg (02/21/22 4:05 PM) 136/99mm Hg (02/21/22 10:58 AM) 121/85mm Hg (02/21/22 9:11 AM) Respiratory Rate [16-30 br/min] 16 br/min (02/21/22 4:05 PM) 14 br/min *L* (02/21/22 10:58 AM) 22 br/min (02/21/22 9:11 AM) Temperature [96.8-100.4 DegF] 98.2 DegF (02/21/22 10:58 AM) 99.0 DegF (02/21/22 9:46 AM) 98.6 DegF (02/21/22 9:11 AM) Liters per Minute 0 L/min (02/21/22 9:11 AM) Mode of Delivery (Oxygen) Room air (02/21/22 4:05 PM) Room air (02/21/22 10:58 AM) Room air (02/21/22 9:11 AM) Blood pressure sites Arm, left (02/21/22 4:05 PM) Arm, right (02/21/22 10:58 AM) Arm, left (02/21/22 9:11 AM) Temperature Route Oral (02/21/22 10:58 AM) Oral (02/21/22 9:46 AM) Oral (02/21/22 9:11 AM) Note * BHSPowerscribe , CIS S: TRANSCRIBE Boyd GUERRERO, Yehuda Malik: VERIFY Event Display: Result: Authored Date: [id number] PROCEDURE: Chest 2 Views Frontal and Lat INDICATION: 36 years old Male with Hx of Present Illness: Pt states, I am a lot of pain in my back and I feel short of breath, I am cold and hot. My whole body hurts. The pain in my back is all over. The pain started 3 hrs ago, I fell out of bed I think.' Pt denies loc no thinners; Reason: Shortness of Breath; COMPARISON: Chest radiographs 2013 and March 11, 2021. FINDINGS: AP and lateral sitting upright views of the chest obtained. Portions of the wheelchair project over the upper abdomen and posterior inferior soft tissues of the back on the lateral view. Lines and tubes:None. Lungs and pleura: Lungs are clear. No pleural effusions.No evidence of pneumothorax. Heart, mediastinum and estelle: The cardiomediastinal silhouette and pulmonary vasculature are unremarkable. No cardiomegaly or pulmonary venous hypertension. Bones and soft tissues: No other demonstrable abnormality. IMPRESSION: 1. No evidence of acute cardiopulmonary disease. Thank you for allowing me to participate in the care of this patient. WSN: [id number] Ordering Physician: Arlene Vicenet Dictated By: Yehuda Nix MD Dictated Date/Time: 02/21/22 1:26 pm Reviewed By: Yehuda Nix MD Signed By: Yehuda Nix MD Signed Date/Time: 02/21/22 1:26 pm Transcribed By: SIMÓN Transcribed Date/Time: 02/21/22 1:25 pm Patient Care team information Personnel Name: Not on Staff, PCP
--- OUTSIDE RECORDS SUMMARY | 2023-06-23 16:56 | XMS_ITS | Continuity of Care Document ---
Author Name Unknown Organization [facility] ter Address [address] [place] [address]- Care Team Providers Care Licensing Analyst Name Role Phone Not on Staff, PCP Primary Care Physician Unavail able Encounter [facility] [place] Date(s): 03/11/21 - 03/12/21 [facility] [address] [place] [address]- Discharge Disposition: A-D/C AMA Attending Physician: Dian Schultz MD Admitting Physician: Vincent Batista MD Referring Physician: Not on Staff, Referring MD Allergies, Adverse Reactions, Alerts Substance Reaction Severity Status NKA Active Medications ARIPiprazole 10 mg oral tablet 10 mg, 1, tablet, By Mouth, Daily, # 90 tablet, Refills 0, Maintenance, 03/12/21 2:38:00 EDT, Partial fill upon patient request if the prescription is for a schedule II opioid drug. Start Date: 03/12/21 Status: Ordered Results Radiology Reports * Exam Date Time Procedure Performing Provider Status 03/11/21 9:41 PM Chest Portable Rossi Velazquez (Verified) Notes: (Chest Portable) Reason For Exam: Cough RESULT: Chest Portable Chest Portable Reason: Cough; Clinical Question(s): Pneumonia; Special Instructions: This is a protocol film and radiologist should call any findings to the Charge Nurse or appropriate provider COMPARISON: 06/05/2013 FINDINGS: LINES AND TUBES: None. LUNGS AND PLEURA: Moderate to severe bilateral interstitial and airspace opacities. No pleural effusion. No pneumothorax. HEART, MEDIASTINUM AND ALIZE: Heart is normal in size. Normal upper mediastinal and hilar contour. BONES AND SOFT TISSUES: No acute abnormality. IMPRESSION: Moderate to severe bilateral interstitial and airspace opacities likely reflecting pulmonary edema in the setting of OD. Diffuse alveolar hemorrhage and aspiration pneumonitis could have a similar appearance. WSN: [id number] Ordering Physician: Lynn Velasquez MD Dictated By: James Estrada MD Dictated Date/Time: 03/11/21 9:48 pm Reviewed By: James Estrada MD Signed By: James Estrada MD Signed Date/Time: 03/11/21 9:48 pm Transcribed By: SIMÓN Transcribed Date/Time: 03/11/21 9:46 pm Vital Signs Most recent to oldest [Reference Range]: 1 2 3 Height 66 cm (03/12/21 1:46 AM) Weight 61.3 kg (03/12/21 1:46 AM) Oxygen Saturation [94-100 %] 98 % (03/12/21 4:00 AM) 94 % (03/12/21 2:00 AM) 99 % (03/12/21 12:47 AM) Pulse Rate [55-90 bpm] 106 bpm *H* (03/12/21 1:46 AM) 112 bpm *H* (03/12/21 12:36 AM) 109 bpm *H* (03/11/21 11:20 PM) Body Mass Index [18.5-24.99] 140.73 *>HHI* (03/12/21 1:46 AM) Blood Pressure [90-138/55-84 mm Hg] 146/94mm Hg *H* (03/12/21 4:00 AM) 124/94mm Hg (03/12/21 2:00 AM) 129/79mm Hg (03/12/21 1:46 AM) Respiratory Rate [16-30 br/min] 20 br/min (03/12/21 4:00 AM) 21 br/min (03/12/21 2:00 AM) 22 br/min (03/12/21 1:46 AM) Temperature [96.8-100.4 DegF] 100.0 DegF (03/12/21 1:46 AM) 97.3 DegF (03/11/21 9:33 PM) Liters per Minute 15 L/min (03/11/21 10:02 PM) 15 L/min (03/11/21 9:33 PM) Mode of Delivery (Oxygen) High flow nasal cannula (03/12/21 12:36 AM) High flow nasal cannula (03/11/21 11:20 PM) High flow nasal cannula (10/28/21 10:12 PM) Blood pressure sites Arm, left (03/12/21 1:46 AM) Arm, left (03/12/21 12:36 AM) Arm, left (03/11/21 11:20 PM) Temperature Route Temporal (03/12/21 1:46 AM) Rectal (03/11/21 9:33 PM) Dry Weight 61.3 kg (03/12/21 1:46 AM)
--- OUTSIDE RECORDS SUMMARY | 2023-06-23 16:56 | XMS_ITS | Continuity of Care Document ---
Author Name Unknown Organization [facility] Address [address] [place] [address]- Care Team Providers Care Lead Software Test Engineer Name Role Phone Not on Staff, PCP Primary Care Physician Unavail able [place] [facility] [place] [id number] Date(s): 06/01/21 - 07/01/[address] [address]- Attending Physician: Jacquie Villar Admitting Physician: Jacquie Villar Referring Physician: AdmtrJacquie Allergies, Adverse Reactions, Alerts No Known Allergies [...] Pt [facility].
--- OUTSIDE RECORDS SUMMARY | 2023-06-23 16:56 | XMS_ITS | Continuity of Care Document ---
Author Name Unknown Organization [facility] ter Address [address] [place] [id number]- Care Team Providers Care Stock Analyst Name Role Phone Not on Staff, PCP Primary Care Physician Unavail able [place] [facility] - 05/23/[address] [address]- Discharge Disposition: A-D/C Home Attending Physician: Santiago Lackey MD Admitting Physician: Ronny GUERRERO, Anastasia Ordonez Referring Physician: Not on Staff, Referring MD Allergies, Adverse Reactions, Alerts Substance Reaction Severity Status NKA Active Medications amoxicillin-clavulanate 875 mg-125 mg oral tablet = 875 mg, By Mouth, 2 times a day, for 5 days, # 9 each, 0 Refills, Acute 05/28/21 13:30:00 EST, 05/23/21 13:30:00 EST, Tablet, [facility], Partial fill upon patient request if the prescription is for a schedule II opioid drug., 178, cm,... Start Date: 05/23/21 Stop Date: 05/28/21 Status: Ordered ARIPiprazole 10 mg oral tablet 10 mg, [...] [facility] Results Orders for Microbiology Reports Name Date Sputum Culture w/ Gram Smear 05/22/21 Blood Culture 05/22/21 Blood Culture #2 05/22/21 Microbiology Reports TEST:Sputum Culture STATUS:Unauthenticated BODY SITE: SOURCE:ENDOTR COLLECTED DATE/TIME:05/22/21 5:38 AM Sputum Culture SPECIMEN DESCRIPTION : ENDOTRACHEAL ASPIRATE SPECIAL REQUESTS : NONE GRAM STAIN : 4+ POLYMORPHONUCLEAR LEUKOCYTES 1+ SQ.EPITHELIAL CELLS 3+ GRAM POSITIVE COCCI 1+ YEAST 1+ GRAM NEGATIVE RODS CULTURE : NORMAL SO FAR REPORT STATUS : PRELIMINARY REPORT TEST:Blood Culture, Second Order STATUS:Unauthenticated BODY SITE: SOURCE:Blood COLLECTED DATE/TIME:05/22/21 3:00 AM Blood Culture, Second Order SPECIMEN DESCRIPTION : BLOOD SPECIAL REQUESTS : NONE CULTURE : NO GROWTH AFTER 24 HOURS REPORT STATUS : PRELIMINARY REPORT TEST:Blood Culture STATUS:Unauthenticated BODY SITE: SOURCE:Blood COLLECTED DATE/TIME:05/22/21 2:49 AM Blood Culture SPECIMEN DESCRIPTION : BLOOD SPECIAL REQUESTS : NONE CULTURE : NO GROWTH AFTER 24 HOURS REPORT STATUS : PRELIMINARY REPORT Radiology Reports * Exam Date Time Procedure Performing Provider Status 05/23/21 5:39 AM Chest Portable Artemio Smith; Auth (Verified) Notes: (Chest Portable) Reason For Exam: Cough RESULT: Chest Portable Chest Portable Reason: Cough; Clinical Question(s): Aspiration COMPARISON: 05/22/2021. FINDINGS: LINES AND TUBES: None. LUNGS AND PLEURA: Increasing right basilar consolidative and patchy airspace opacity. Increasing consolidation of theright upper lobe. The left lung remains relatively clear. No pleural effusion. No pneumothorax. HEART, MEDIASTINUM AND ALIZE: Heart is normal in size. Normal upper mediastinal and hilar contour. BONES AND SOFT TISSUES: No acute abnormality. IMPRESSION: Worsening multifocal right-sided pneumonitis. WSN: [id number] Ordering Physician: Leola Tran Dictated By: Rosas Gill MD Dictated Date/Time: 05/23/21 2:12 pm Reviewed By: Rosas Gill MD Signed By: Rosas Gill MD Signed Date/Time: 05/23/21 2:12 pm Transcribed By: SIMÓN Transcribed Date/Time: 05/23/21 2:11 pm * Exam Date Time Procedure Performing Provider Status 05/22/21 1:46 AM Chest Portable Chary Lehman; Auth ( Verified) Notes: (Chest Portable) Reason For Exam: Line/Tube Placement;Other: RESULT: Chest Portable Chest Portable Reason: Other:; Line Tube Placement; Clinical Question(s): Other:; Confirm Position, Assess for Complication COMPARISON: 05/22/2021 FINDINGS: LINES AND TUBES: Endotracheal tube terminates in the mid trachea. Nasogastric tube terminates in the stomach. LUNGS AND PLEURA: There is consolidation at the right lung base, and new consolidation at the left lung base, in the retrocardiac region.. Elsewhere lungs has cleared a bit since the earlier radiograph. Small right effusion. No pneumothorax. HEART, MEDIASTINUM AND ALIZE: Heart is normal in size. Normal upper mediastinal and hilar contour. BONES AND SOFT TISSUES: No acute abnormality. IMPRESSION: Lines are in satisfactory position. Increased consolidation at the right lung base and new consolidation at the left base. Elsewhere the lungs have cleared somewhat. Aspiration is a consideration. WSN: [id number] Ordering Physician: Terrance Ferrer Dictated By: Talia Mccurdy MD Dictated Date/Time: 05/22/21 8:12 am Reviewed By: Talia Mccurdy MD Signed By: Talia Mccurdy MD Signed Date/Time: 05/22/21 8:12 am Transcribed By: SIMÓN Transcribed Date/Time: 05/22/21 8:04 am * Exam Date Time Procedure Performing Provider Status 05/22/21 12:58 AM Chest Portable Chary Lehman; Auth (Verified) Notes: (Chest Portable) Reason For Exam: Shortness of Breath RESULT: Chest Portable Chest Portable Reason: Shortness of Breath; Clinical Question(s): Pneumonia COMPARISON: 06/07/2013 FINDINGS: LINES AND TUBES: None. LUNGS AND PLEURA: Patchy opacities throughout the right lung and at the left apex compatible with atypical pneumonia. No pleural effusion. No pneumothorax. HEART, MEDIASTINUM AND ALIZE: Heart is normal in size. Normal upper mediastinal and hilar contour. BONES AND SOFT TISSUES: No acute abnormality. IMPRESSION: Atypical pneumonia, worse on the right. WSN: [id number] Ordering Physician: Olivier Dhaliwal Dictated By: Talia Mccurdy MD Dictated Date/Time: 05/22/21 8:04 am Reviewed By: Talia Mccurdy MD Signed By: Talia Mccurdy MD Signed Date/Time: 05/22/21 8:04 am Transcribed By: SIMÓN Transcribed Date/Time: 05/22/21 8:03 am Vital Signs Most recent to oldest [Reference Range]: 1 2 3 Height 178 cm (05/22/21 4:49 AM) Weight 66 kg (05/22/21 4:49 AM) Oxygen Saturation [94-100 %] 99 % (05/23/21 2:00 PM) 96 % (05/23/21 1:00 PM) 97 % (05/23/21 12:00 PM) Pulse Rate [55-90 bpm] 112 bpm *H* (05/22/21 4:49 AM) 110 bpm *H* (05/22/21 4:00 AM) 136 bpm *H* (05/22/21 3:12 AM) Body Mass Index [18.5-24.99] 20.83 (05/22/21 4:49 AM) Blood Pressure [90-138/55-84 mm Hg] 129/94mm Hg (05/23/21 2:00 PM) 121/93mm Hg (05/23/21 1:00 PM) 136/76mm Hg (05/23/21 9:00 AM) Respiratory Rate [16-30 br/min] 20 br/min (05/23/21 2:00 PM) 19 br/min (05/23/21 1:00 PM) 24 br/min (05/23/21 12:00 PM) Temperature [96.8-100.4 DegF] 99.1 DegF (05/23/21 10:00 AM) 98.0 DegF (05/23/21 4:00 AM) 98.8 DegF (05/23/21 12:00 AM) Liters per Minute 3 L/min (05/23/21 9:00 AM) 3 L/min (05/23/21 8:00 AM) 3 L/min (05/23/21 7:00 AM) Mode of Delivery (Oxygen) Room air (05/23/21 2:00 PM) Room air (05/23/21 1:00 PM) Room air (05/23/21 12:00 PM) Blood pressure sites Arm, right (05/23/21 2:00 PM) Arm, right (05/23/21 1:00 PM) Arm, right (05/23/21 9:00 AM) Temperature Route Oral (05/23/21 10:00 AM) Oral (05/23/21 4:00 AM) Oral (05/23/21 12:00 AM) Dry Weight 66 kg (05/22/21 4:49 AM) 66 kg (05/22/21 4:23 AM) 66 kg (05/22/21 4:23 AM)
--- OUTSIDE RECORDS SUMMARY | 2023-06-23 16:56 | XMS_ITS | Continuity of Care Document ---
Author Name Unknown Organization [facility] ter Address [address] [place] [address]- Care Team Providers Care Member Certification Manager Name Role Phone Not on Staff, PCP Primary Care Physician Unavail able Encounter [facility] [place] Date(s): 01/18/22 - 01/18/[address] [address]- Discharge Disposition: A-D/C Walkout Attending Physician: Not on Staff, Attending MD Admitting Physician: Not on Staff, Admitting MD Referring Physician: Not on Staff, Referring [...] 0 Refills, Soft Stop, 10/31/21 14:44:00 EDT, [id number], Partial fill upon patient request if the prescription is for a schedule II opioid drug., 167.6, cm, 0... Start Date: 10/31/21 Status: Ordered traZODone 50 mg oral tablet 50 mg, 1, tablet, By Mouth, Daily at bedtime, PRN, # 21 tablet, Refills 1, Tot. Refills 1, Maintenance, Sleep, 08/24/21 10:15:00 EDT, Route to Pharmacy Electronically, [id number], Partial fill upon patient request if the prescription... Start Date: 08/24/21 Stop Date: 10/05/21 Status: Ordered Problem List Condition Effective Dates Status Health Status Inform ant Positive PPD(Confirmed) 1 04/16/10 Active 110mm. PPD 0mm on 03/06/09. Pt started 600mg Rifampin therapy on 05/26/10 and stopped on 09/22/10. [facility] Vital Signs Most recent to oldest [Reference Range]: 1 2 Oxygen Saturation [94-100 %] 100 % (01/18/22 6:52 PM) 100 % (01/18/22 6:43 PM) Pulse Rate [55-90 bpm] 102 bpm *H* (01/18/22 6:52 PM) 113 bpm *H* (01/18/22 6:43 PM) Blood Pressure [90-138/55-84 mm Hg] 130/ 88mm Hg (01/18/22 6:52 PM) Respiratory Rate [16-30 br/min] 18 br/mi n (01/18/22 6:52 PM) Temperature [96.8-100.4 DegF] 98.6 DegF (01/18/22 6:52 PM) Mode of Delivery (Oxygen) Room air (01/18/22 6:52 PM) Room air (01/18/22 6:43 PM) Blood pressure sites Arm, left (01/18/22 6:52 PM) Temperature Route Oral (01/18/22 6:52 PM) Social History Social History Type Response Smoking Status 5-9 cigarettes (betw een 1/4 to 1/2 pack)/day in last 30 days; Interested in cessation: No; Patient wants NRT during admission No entered on: 08/21/21 Sex Care Team Personnel Name: Not on Staff, PCP
== END 2023-06-23 17:00 | disposition home or self-care (01) ==
PROVIDERS: Emergency Provider Emergency Medicine
DX: F19.10 Other psychoactive substance abuse, uncomplicated (principal); Z79.899 Other long term (current) drug therapy

== ENCOUNTER 2023-07-07 14:32 | Emergency (ER) | payer MEDICAID, SELFPAY ==
--- NOTE | ~2023-07-07 | CT_ITS ---
EXAMINATION: CT HEAD WITHOUT CONTRAST CT CERVICAL SPINE WITHOUT CONTRAST CLINICAL INFORMATION: Neck pain after head injury. COMPARISON: CT imaging from 04/18/2023. TECHNIQUE: Contiguous axial imaging was performed from the skullbase to vertex without intravenous administration of contrast. Multidetector helical imaging was performed through the cervical spine. This CT examination was performed using dose optimization techniques as appropriate, variously including the following: *Automated exposure control *Adjustment of mA and/or kV according to patient size (this includes techniques or standardized protocols for targeted exams where dose is matched to indication/reason for exam; i.e. extremities or head) *Use of iterative reconstruction technique DLP: 674.2, 397.4 mGy-cm. FINDINGS: HEAD: There is no evidence of acute intracranial hemorrhage or territorial infarction. No abnormal mass effect or midline shift is seen. No extra-axial fluid collections are identified. The ventricles are normal in size. Brain parenchymal attenuation is normal. The osseous structures and soft tissues are normal. The mastoid air cells are well aerated. Hypoplastic right maxillary sinus with mucosal opacification partially visualized. The remaining paranasal sinuses are well aerated. There is prominence of the adenoid soft tissues, measuring up to 2 cm in oblique AP dimension. CERVICAL SPINE: No acute fracture or subluxation is identified in the cervical spine. Mild leftward cervical spinal curvature may be positional. The disc spaces are maintained. The atlantoaxial articulation is normally maintained. The paraspinal soft tissues are normal. The lung apices are clear. CT/CT cervical spine wo IV con IMPRESSION: 1. No acute intracranial pathology. Suspected hypoplastic, chronic mucosal opacified right maxillary sinus. 2. No evidence of acute cervical spine traumatic injury. 3. Nasopharyngeal soft tissue prominence which may be due to adenoidal tonsillar hypertrophy.
[2023-07-07 14:44] VITALS: BP 128/68; PULSE 98; O2SAT 98
--- NOTE | 2023-07-07 14:55 | MHC.EDTECH ---
patient was changed over by security. belongings are in decon. security checked the patients shirt and it is a black t shirt and secuirty ok'd it to be left with the patient.
[2023-07-07 14:56] VITALS: BP 106/60; PULSE 92; RESP 20; TEMP 37.3; O2SAT 92; BMI 26.6
--- NOTE | 2023-07-07 15:15 | ED.GENADULT ---
HPI - General Adult General Chief complaint: Overdose Stated complaint: OVERDOSE + NARCAN Time Seen by Provider: 07/07/23 15:07 History of Present Illness HPI narrative: The patient is a 38-year-old male who was brought to the hospital after he apparently overdosed accidentally when he was smoking heroin. Apparently his girlfriend was present and administered naloxone intranasally twice. Here the patient is complaining of a headache and he believes he might have hit his head during the episode. He says ?I think I had a seizure. ? He is complaining of a headache and neck pain. The patient has a history of PTSD, bipolar disorder, and ADHD. He has been on antipsychotics in the past including aripiprazole. The patient has been psychiatrically hospitalized in the past. The patient's girlfriend arrived later and gave additional details. She says that she was with the patient at [facility] when he went into the bathroom. She says that she heard a loud noise like somebody falling down and she went to check on him. The patient was in a bathroom stall with the door locked. The girlfriend says she had to crawl under the locked door to get to the patient. She says that he was ?seizing. ? She was not sure if he had a pulse or was breathing and so she says she started chest compressions and [id number] resuscitation. She says the patient then threw up in her mouth. She says she then remembered that she had some naloxone and she administered 2 doses of nasal naloxone. Soon after that the patient awoke and jumped on top of the toilet and yelled that he felt fine. They then left the bathroom and went to a parking garage where the patient started to complain of feeling unwell. At that point the girlfriend called 911 and the patient was brought to the hospital. Related Data Home Medications Medication Instructions Recorded Confirmed aripiprazole 15 mg tablet 1 tab PO DAILY 08/20/21 08/20/21 Previous Rx's Medication Instructions Recorded cyclobenzaprine 10 mg tablet 10 mg PO TID PRN muscle spasm #20 04/18/23 tabs lidocaine 4 % topical patch 1 patch topical DAILY PRN pain #10 04/18/23 ea doxycycline hyclate 100 mg tablet 100 mg PO BID 7 days #14 tabs 05/12/23 valacyclovir 1 gram tablet 1,000 mg PO BID 7 days #14 tabs 05/12/23 Allergies Allergy/AdvReac Type Severity Reaction Status Date / Time acetaminophen Allergy Nausea Verified 07/07/23 14:56 Review of Systems Review of Systems: Yes all other systems are reviewed and are negative [facility] Past Medical History Medical History Polysubstance (including opioids) dependence with physiol dependence Social History Social History (System 05/12/23 @ 07:05 by Amber Cruz) Alcohol intake: current Substance Use Type: Marijuana Advance Directives: No Advance Directives Information Provided: No Physical Exam ED Vital Signs: Vital Signs - 24 hr 07/07/23 14:56 Temperature 99.2 F Pulse Rate 92 Respiratory Rate 20 Blood Pressure 106/60 Pulse Oximetry 92 Oxygen Delivery Method Room Air BMI result Body Mass Index 26.6 Const Other: The patient was initially curled up in a ball under a blanket on an ER stretcher. He was speaking very quietly. He did not seem in obvious distress but seemed very subdued. HENMT Other: No signs of trauma to the scalp or the face. No raccoon eyes. No strange sign. No hemotympanum. Tympanic membranes are normal bilaterally. Eyes Other: Pupils are round equal, conjunctivae are clear, extraocular movements intact. Neck Other: Initially the patient seemed to reports some posterior neck tenderness but later he said his neck was feeling fine and was moving it easily Resp Effort & Inspection: normal respiratory effort Auscultation: clear to auscultation bilaterally Cardio Rate: regular rate Rhythm: regular rhythm Heart sounds: S1 normal heart sound present and S2 normal heart sound present GI Other: Abdomen is soft and nontender Skin Other: Skin is dry and unremarkable Neuro Other: The patient initially had very subdued demeanor and was keeping himself curled up with a blanket over his face. Later he was awake and alert with a normal demeanor. At that point mental status was entirely clear. His gait was normal. He seemed entirely neurologically intact. Extrem Other: No signs of trauma to the extremities Medications Administered Discontinued Medications Generic Name Dose Route Start Last Admin Trade Name Freq PRN Reason Stop Dose Admin Naloxone HCl 8 mg 07/07/23 16:33 07/07/23 16:40 Naloxone Hcl Nasal Take Home 4 Mg Hayti NOSTRILALT 07/07/23 16:34 Not Given ONCE ONE Medical Decision Making Medical Decision Making MDM Narrative: The patient was brought to the hospital after apparently having accidentally overdosed on heroin that he had been smoking in a bathroom. His girlfriend describes finding and passed out and possibly ?seizing. ? The patient apparently responded to naloxone administered by the girlfriend and at 1st felt fine but then felt unwell and was brought here by ambulance. When I 1st saw the patient he had a very subdued demeanor and complained of a headache. Given the girlfriend's description of the event I ordered a head CT and a cervical spine CT. These tests were done. After these tests were done he said that he felt much better and did not want to stay in the emergency room anymore. He additionally said he did not wish to have any other testing. He only wanted to be discharged. He was requesting bus passes. I explained that his CT scans had not been read. The patient nevertheless was insistent that he wanted to leave. I reviewed his imaging and do not see any obvious suspicious findings on his CT of the head or the CT of the cervical spine. He will be discharged with instructions to return if he feels worse. He was also dispensed naloxone to go. Discharge Plan Discharge Clinical Impression: Accidental drug overdose, Opioid overdose Patient Disposition: Home, Self-Care Additional Instructions: Please be very careful if you resume any use of heroin or any other opioids. Please keep Narcan handy in case you accidentally overdose again. Please follow-up with a regular doctor. Return to the emergency room if worse. Prescriptions: No Action aripiprazole 15 mg tablet 1 tab PO DAILY cyclobenzaprine 10 mg tablet 10 mg PO TID PRN (Reason: muscle spasm) Qty: 20 0RF lidocaine 4 % adhesive patch,medicated 1 patch topical DAILY PRN (Reason: pain) Qty: 10 0RF Rx Instructions: may leave on for up to 12 hrs valacyclovir 1 gram tablet 1,000 mg PO BID 7 Days Qty: 14 0RF doxycycline hyclate 100 mg tablet 100 mg PO BID 7 Days Qty: 14 0RF Interventions: ED Discharge Assessment Last Done: 07/07/23 16:41 Discharge Date/Time: 07/07/23 16:41
--- NOTE | 2023-07-07 16:02 | PC.NURSE ---
pt to CT at this time.
--- NOTE | 2023-07-07 16:19 | PC.NURSE ---
pt verbalizing that he wants to leave facility d/t us not being able to provide transportation back to the hotel where he is staying. pt stating that he dos not want to wait for results from CT, for labs to be drawn, or urine to be sent. ED provider notified/aware.
== END 2023-07-07 16:41 | disposition home or self-care (01) ==
PROVIDERS: Emergency Provider Emergency Medicine
DX: T40.2X4A Poisoning by other opioids, undetermined, initial encounter (principal); Y92.9 Unspecified place or not applicable; R51.9 Headache, unspecified; R55 Syncope and collapse
CPT/HCPCS: 70450; 72125; 99282; 99284